=== PATIENT | female | born 1995 | race Caucasian/White ===

== ENCOUNTER → 2019-03-31 | Outpatient (CLI) | payer BC ==
[~2019-03-31] MED LIST: AMPDEX15CR PO; BUSP15 PO; LATUDA20 MG PO; MULVITMINE; Nuvaring Vagin1 EACH VG; Tamiflu75 MG PO
== END | disposition home or self-care (01) ==
LOC: LAB SHORT 17:08 → LAB EV 17:08
DX: R10.2 Pelvic and perineal pain (principal)
CPT/HCPCS: 87070; 87077; 87186; 87205

== ENCOUNTER → 2020-11-19 | Outpatient (CLI) | payer SELFPAY ==
[2020-11-21 15:07] LABS: HPV 16 Negative (Negative); HPV 18 Negative (Negative); HPV OTHER HR TYPES Negative (Negative)
== END | disposition home or self-care (01) ==
LOC: LAB SHORT 09:40
PROVIDERS: Family Medicine
DX: Z01.419 Encounter for gynecological examination (general) (routine) without abnormal findings (principal)
CPT/HCPCS: 87624; G0145

== ENCOUNTER → 2022-09-18 | Outpatient (CLI) | payer BC ==
[2022-09-18 10:36] LABS: BASOPHILS ABSOLUTE AUTO 0.04 K/mm3 (0.00-0.23); BASOPHILS PERCENT AUTO 0 % (0-2); EOSINOPHILS ABSOLUTE AUTO 0.05 K/mm3 (0.00-0.68); EOSINOPHILS PERCENT AUTO 0 % (0-6); Hematocrit 41.3 % (33.0-51.0); Hemoglobin 14.4 g/dL (11.5-16.0); IMMATURE GRAN ABSOLUTE AUTO 0.06 K/mm3 (0.00-0.10); IMMATURE GRAN PERCENT AUTO 0 % (0-1); LYMPHOCYTES PERCENT AUTO 13 % (21-46); MONOCYTES ABSOLUTE AUTO 1.04 K/mm3 (0.16-1.47); MONOCYTES PERCENT AUTO 7 % (4-13); Mean Corpuscular HGB Conc 34.9 g/dL (31.5-36.5); Mean Corpuscular Volume 89 fL (80-100); Mean Platelet Volume 9.2 fL (9.1-12.4); NEUTROPHILS ABSOLUTE AUTO 11.08 K/mm3 (1.96-9.15); NEUTROPHILS PERCENT AUTO 78 % (41-73); Platelet Count 372 K/mm3 (150-400); RDW Coefficient Variation 12.4 % (11.7-14.2); RDW Standard Deviation 40.2 fL (35.1-46.3); Red Blood Cell Count 4.65 M/mm3 (3.80-5.20); White Blood Cell Count 14.17 K/mm3 (4.00-11.30)
[2022-09-18 11:18] LABS: Thyroid Stimulating Hormone 0.767 uIU/mL (0.360-4.800)
[2022-09-18 11:19] LABS: Albumin/Globulin Ratio 1.1 (0.8-1.8); Bilirubin, Total 0.4 mg/dL (0.1-1.0); Bun/Creatinine Ratio 14.8 (12.0-20.0); Calcium, Blood 9.3 mg/dL (8.5-10.1); Creatinine, Blood 0.61 mg/dL (0.40-1.00); Globulin, Blood 3.6 g/dL (2.2-4.0); Potassium, Blood 4.3 mmol/L (3.5-5.5); Total Protein, Blood 7.6 g/dL (6.4-8.2)
== END ==
LOC: LAB SHORT 10:27
PROVIDERS: Chiropractor
DX: R53.83 Other fatigue (principal); R94.31 Abnormal electrocardiogram [ECG] [EKG]
CPT/HCPCS: 80053; 84443; 84484; 85025; 85379

== ENCOUNTER → 2022-11-05 | Outpatient (CLI) | payer BC | END | disposition home or self-care (01) | LOC: PLD 12:32 → LAB SHORT 12:32 | DX: L91.8 Other hypertrophic disorders of the skin (principal) | CPT/HCPCS: 88304 ==

== ENCOUNTER → 2023-01-03 | Outpatient (CLI) | payer BC | END | disposition home or self-care (01) | LOC: LAB SHORT 11:19 → LAB 11:19 | DX: N39.0 Urinary tract infection, site not specified (principal) | CPT/HCPCS: 87077; 87086; 87186 ==

== ENCOUNTER → 2024-12-01 | Outpatient (CLI) | payer BC, OTHER ==
[2024-12-01 19:32] LABS: Bacterial Vaginosis PCR Negative (NEGATIVE); Candida Group, PCR NOT DETECTED (NOT DETECT); Candida glabrata-krusei, PCR NOT DETECTED (NOT DETECT)
== END ==
LOC: LAB SHORT 17:08 → LAB 17:08
PROVIDERS: Emergency Medicine
DX: N89.8 Other specified noninflammatory disorders of vagina (principal)
CPT/HCPCS: 81515